=== PATIENT | male | born 1945 ===

== ENCOUNTER 2016-07-14 12:25 | Emergency (ER) | payer BC ==
[~2016-07-14] VITALS: Ht 167.6 cm; Wt 61.0 kg
[2016-07-14 12:41] VITALS: Ht 167.6 cm; Wt 61.0 kg
[2016-07-14 14:31] LABS: ADD SCAN DIFF NO
[2016-07-14 14:33] LABS: BASOPHILS % 0.1 % (0.0-2.0); EOSINOPHILS % 0.3 % (0.0-7.0); HEMATOCRIT 40.2 % (42.0-52.0); HEMOGLOBIN 13.9 g/dl (14.0-18.0); LYMPHOCYTES # 0.9 10^3/ul (0.8-2.9); LYMPHOCYTES % 11.8 % (15.0-51.0); MEAN CORPUSCULAR HEMOGLOBIN 30.6 pg (29.0-33.0); MEAN CORPUSCULAR HGB CONC 34.6 g/dl (32.0-37.0); MEAN CORPUSCULAR VOLUME 88.5 fl (82.0-101.0); MEAN PLATELET VOLUME 8.6 fl (7.4-10.4); MONOCYTE # 0.6 10^3/ul (0.3-0.9); MONOCYTES % 7.7 % (0.0-11.0); NEUTROPHIL # 6.2 10^3/ul (1.6-7.5); NEUTROPHILS % 79.7 % (39.0-77.0); PLATELET COUNT 409 10^3/UL (140-415); RED BLOOD COUNT 4.54 10^6/ul (4.70-6.10); RED CELL DISTRIBUTION WIDTH 13.4 % (11.5-14.5); WHITE BLOOD COUNT 7.8 10^3/ul (4.8-10.8)
[2016-07-14] MEDS ORDERED: BENA40TA41 PO (14:34)
[2016-07-14] MEDS ORDERED: LEVO25TA53 PO (14:34)
[2016-07-14] MEDS ORDERED: SIMV20TA PO (14:34)
[2016-07-14] MEDS ORDERED: PITA2TAB PO (14:34)
[2016-07-14] MEDS ORDERED: CLON-379 PO (14:35)
[2016-07-14] MEDS ORDERED: ICOS1CAP PO (14:35)
--- NOTE | 2016-07-14 14:43 | RADRPT ---
PROCEDURE: CT Brain without. CLINICAL INDICATION: Possible stroke. TECHNIQUE: A CT of the brain was performed on multidetector high-resolution CT scanner utilizing a xial sections from the skull base through the vertex without contrast. The scan was reviewed in sof t tissue brain and high frequency resolution bone algorithm windows. Images were reviewed on a high -resolution PACS workstation. One or more the following does reduction techniques were utilized: Aut omated exposure control, adjustment of the mA/ or kV according to patient's size, or use of iterativ e reconstruction technique. The exam CTDI = 44.46 mGy and the DLP = 630.2 mGy-cm. COMPARISON: None available. FINDINGS: The ventricles and sulci are mildly prominent indicative of volume loss. There is no intracranial h emorrhage, mass effect or midline shift. No abnormal intra-axial or extra-axial fluid collections a re seen. The hoyt/white matter differentiation is preserved. There are mild scattered foci of hypoattenuation in the white matter, which are nonspecific in etiol ogy but likely reflect chronic small vessel ischemic changes. There are minimal intracranial vascul ar calcifications consistent with atherosclerosis. The visualized paranasal sinuses are essentially clear. IMPRESSION: 1. No acute intracranial hemorrhage, transcortical infarction or mass effect. 2. Minimal intracranial atherosclerosis and mild chronic small vessel ischemic changes. 3. Mild generalized cerebral volume loss. RPTAT: HH .Kenna Pollock MD, MD Date Time Electronically viewed and signed by .Kenna Pollock MD, MD on 07/14/2016 14:43 .N/
[2016-07-14 14:48] LABS: INR 0.94; PARTIAL THROMBOPLASTIN TIME 25.1 Sec (25.0-35.0); PROTIME 12.6 Sec (12.2-14.2)
[2016-07-14 14:51] LABS: ALANINE AMINOTRANSFERASE 37 IU/L (13-69); ALBUMIN 4.4 g/dl (3.3-4.9); ALBUMIN/GLOBULIN RATIO 1.76; ALKALINE PHOSPHATASE 46 IU/L (42-121); ANION GAP 10 (8-16); ASPARTATE AMINO TRANSFERASE 24 IU/L (15-46); BILIRUBIN,INDIRECT 0.3 mg/dl (0-1.1); BILIRUBIN,TOTAL 0.3 mg/dl (0.2-1.3); BLOOD UREA NITROGEN 20 mg/dl (7-20); CALCIUM 8.9 mg/dl (8.4-10.2); CARBON DIOXIDE 25 mmol/L (21-31); CHLORIDE 107 mmol/L (97-110); CREATININE 0.91 mg/dl (0.61-1.24); GLUCOSE 105 mg/dl (70-220); POTASSIUM 4.4 mmol/L (3.5-5.1); SODIUM 138 mmol/L (135-144); TOTAL PROTEIN 6.9 g/dl (6.1-8.1)
[2016-07-14 15:03] LABS: TROPONIN-I < 0.012 ng/ml (0.00-0.12)
--- NOTE | 2016-07-14 15:07 | ERD ---
ER Documentation Chief Complaint Date/Time DATE: 07/14/16 TIME: 15:03 Chief Complaint dizzy, face & hand numbness x1wk sent by pcp HPI 71-year-old male with history of hypertension, hyperlipidemia and thyroid disease referred to the ED by his primary care physician Dr.Hasmin Zamora for evaluation of possible TIA/CVA. Patient works in the kitchen here at [employer] and complains of a two-week history of increasing work stress that began after the menu was changed resulting in anxiety, nervousness and insomnia. Denies depression, suicidal or homicidal ideations. Denies headache, dizziness, visual changes, focal weakness or numbness. Apparently in her office patient complained of intermittent facial numbness but he denies this currently. No chest pain or palpitations. No shortness of breath or cough. Denies abdominal pain, nausea, vomiting, diarrhea or constipation. No dysuria, polyuria or flank pain. No fevers or chills. ROS All systems reviewed and are negative except as per history of present illness. Medications Home Meds Reported Medications Clonidine Hcl* (Clonidine Hcl*) 0.1 Mg Tab, 0.1 MG PO Q8, TAB 07/14/16 Icosapent Ethyl (VASCEPA) 1 Gm Capsule, 2 GM PO BID, CAP 07/14/16 Pitavastatin Calcium (Livalo) 2 Mg Tablet, 2 MG PO DAILY, TAB 07/14/16 Simvastatin* (Zocor*) 20 Mg Tablet, 20 MG PO QHS, #30 TAB 07/14/16 Levothyroxine Sodium* (Levothyroxine Sodium*) 25 Mcg Tablet, 25 MCG PO BEFORE BREAKFAST, #30 TAB 07/14/16 Benazepril Hcl* (Benazepril Hcl*) 40 Mg Tablet, 40 MG PO DAILY, #30 TAB 07/14/16 Allergies Allergies: Coded Allergies: No Known Allergy (Unverified , 07/14/16) PMhx/Soc Reviewed in chart. As per HPI History of Surgery: Yes (prostate) Anesthesia Reaction: No Hx Neurological Disorder: No Hx Respiratory Disorders: No Hx Cardiac Disorders: Yes (htn, high cholesterol) Hx Psychiatric Problems: No Hx Miscellaneous Medical Probl: No Hx Alcohol Use: No Hx Substance Use: No Hx Tobacco Use: No Smoking Status: Never smoker FmHx No stroke or coronary artery disease Physical Exam Vitals Vital Signs Date Time Temp Pulse Resp B/P Pulse Ox O2 Delivery O2 Flow Rate FiO2 07/14/16 12:41 99.0 89 20 143/76 100 Physical Exam Const: Alert, anxious Head: Atraumatic Eyes: SHIRAZ, EOMI. Normal Conjunctiva. No nystagmus ENT: Normal External Ears, Nose and Mouth. Neck: Full range of motion. Nontender. Carotids are 2+ bilaterally without bruits. No JVD. Resp: Breath sounds are equal and clear to auscultation bilaterally. No rales rhonchi or wheezes. Cardio: Regular rate and rhythm, no murmurs Abd: Soft, non tender, non distended. Normal bowel sounds. No rebound or guarding. No mass or abnormal pulsations. Skin: No petechiae or rashes Back: No midline or flank tenderness Ext: No cyanosis, or edema. No calf swelling or tenderness. Neur: Awake and alert. Cranial nerves II through XII are intact. Motor and sensory equal bilaterally. Gait is normal. No focal deficit observed. Psych: Patient appears anxious but not depressed. On direct questioning he denies suicidal or homicidal ideations. Result Diagram: 07/14/16 1420 07/14/16 1420 Results 24 hrs Laboratory Tests Test 07/14/16 14:20 07/14/16 14:47 07/14/16 17:10 White Blood Count 7.810^3/ul Red Blood Count 4.5410^6/ul Hemoglobin 13.9g/dl Hematocrit 40.2% Mean Corpuscular Volume 88.5fl Mean Corpuscular Hemoglobin 30.6pg Mean Corpuscular Hemoglobin Concent 34.6g/dl Red Cell Distribution Width 13.4% Platelet Count 52124^3/UL Mean Platelet Volume 8.6fl Neutrophils % 79.7% Lymphocytes % 11.8% Monocytes % 7.7% Eosinophils % 0.3% Basophils % 0.1% Nucleated Red Blood Cells % 0.0/100WBC Neutrophils # 6.210^3/ul Lymphocytes # 0.910^3/ul Monocytes # 0.610^3/ul Eosinophils # 0.010^3/ul Basophils # 0.010^3/ul Nucleated Red Blood Cells # 0.010^3/ul Prothrombin Time 12.6Sec Prothrombin Time Ratio 1.0 INR International Normalized Ratio 0.94 Activated Partial Thromboplast Time 25.1Sec Sodium Level 138mmol/L Potassium Level 4.4mmol/L Chloride Level 107mmol/L Carbon Dioxide Level 25mmol/L Anion Gap 10 Blood Urea Nitrogen 20mg/dl Creatinine 0.91mg/dl Glucose Level 105mg/dl Calcium Level 8.9mg/dl Total Bilirubin 0.3mg/dl Direct Bilirubin 0.00mg/dl Indirect Bilirubin 0.3mg/dl Aspartate Amino Transf (AST/SGOT) 24IU/L Alanine Aminotransferase (ALT/SGPT) 37IU/L Alkaline Phosphatase 46IU/L Troponin I < 0.012ng/ml Total Protein 6.9g/dl Albumin 4.4g/dl Globulin 2.50g/dl Albumin/Globulin Ratio 1.76 Thyroid Stimulating Hormone (TSH) 2.840MIU/L Free Thyroxine 1.07ng/dl Bedside Glucose 91mg/dL Urine Color YELLOW Urine Clarity CLEAR Urine pH 5.5 Urine Specific [place] >=1.030 Urine Ketones NEGATIVE Urine Nitrite NEGATIVE Urine Bilirubin NEGATIVE Urine Urobilinogen 0.2 E.U./dL Urine Leukocyte Esterase NEGATIVE Urine Microscopic RBC 2-5/HPF Urine Microscopic WBC 0-2/HPF Urine Squamous Epithelial Cells RARE Urine Hemoglobin TRACE Urine Glucose NEGATIVE% Urine Total Protein NEGATIVE EKG: Time: 14:21. Sinus rhythm. Ventricular rate 70, normal MD and QRS intervals. No acute ST segment elevation or depression. No axis deviation or ectopy. EP Impression: Normal EKG IMAGING: PROCEDURE: CT Brain without. CLINICAL INDICATION: Possible stroke. TECHNIQUE: A CT of the brain was performed on multidetector high-resolution CT scanner utilizing axial sections from the skull base through the vertex without contrast. The scan was reviewed in soft tissue brain and high frequency resolution bone algorithm windows. Images were reviewed on a high- resolution PACS workstation. One or more the following does reduction techniques were utilized: Automated exposure control, adjustment of the mA/ or kV according to patient's size, or use of iterative reconstruction technique. The exam CTDI = 44.46 mGy and the DLP = 630.2 mGy-cm. COMPARISON: None available. FINDINGS: The ventricles and sulci are mildly prominent indicative of volume loss. There is no intracranial hemorrhage, mass effect or midline shift. No abnormal intra- axial or extra-axial fluid collections are seen. The hoyt/white matter differentiation is preserved. There are mild scattered foci of hypoattenuation in the white matter, which are nonspecific in etiology but likely reflect chronic small vessel ischemic changes. There are minimal intracranial vascular calcifications consistent with atherosclerosis. The visualized paranasal sinuses are essentially clear. IMPRESSION: 1. No acute intracranial hemorrhage, transcortical infarction or mass effect. 2. Minimal intracranial atherosclerosis and mild chronic small vessel ischemic changes. 3. Mild generalized cerebral volume loss. RPTAT: HH .Kenna Pollock MD, Date Time Electronically viewed and signed by .Kenna Pollock MD, on 07/14/2016 14: 43 .N/ PROCEDURE: XR Chest. CLINICAL INDICATION: 71-year-old male with weakness. TECHNIQUE: Single frontal view of the chest was obtained. COMPARISON: Chest x-ray 07/05/2012 10:50 a.m. FINDINGS: The soft tissues are normal. There are degenerative osteophytes in the thoracic spine. The heart is upper limits of normal for size. The cardiomediastinal silhouette and hilar structures are normal. The pulmonary vasculature is normal. There is a left-sided aorta. The lungs are clear. The costophrenic angles are normal. IMPRESSION: 1. There is no evidence of active cardiopulmonary disease. 2. Spondylosis of the thoracic spine. RPTAT:AAJJ Physician Aaron Date Time Electronically viewed and signed by Physician Aaron on 07/14/2016 15:07 JM/ Procedures/MDM DOCUMENTS REVIEWED: ED nurse, prior ED, prior REEXAMINATION/REEVALUATION: Time:17:35. Doing well. Vital signs stable. Asymptomatic. [employer]-year-old male with history of hypertension, hyperlipidemia and thyroid disease referred to the ED by his primary care physician Dr.Hasmin Zamora for evaluation of possible TIA/CVA. Patient apparently presented to our office complaining of a 2 week history of intermittent facial numbness but he denies this currently. No chest pain, ischemic EKG changes or other signs of acute coronary syndrome or cardiac dysrhythmia. CT of the brain is negative and neurologic exam is completely normal. No electrolyte abnormalities. Thyroid function tests are normal. No fever, leukocytosis or signs of an acute infectious process including but not limited to pneumonia and urinary tract infection. Abdominal exam is benign without significant tenderness, rebound, guarding or other signs of an occult intra-abdominal process including but not limited to abdominal aortic aneurysm. Presentation consistent with anxiety likely secondary to work-related stress although an element of depression should be considered. No evidence of dementia or delirium. No suicidality or homicidality. Discussed with his PMD who recommends discharge home with a short course of Xanax and close follow-up. Stable for discharge with precautionary instructions and outpatient follow-up as counseled. CALLS/CONSULTS: Time:18:00. Dr.Hasmin Zamora. Recommends discharge home with prescription for Xanax and outpatient follow-up in her office on . Counseled patient regarding diagnostic workup, diagnosis and need for followup. Understands to return to ED if symptoms recur, worsen or any other concerns. Departure Diagnosis: Primary Impression: Numbness Additional Impressions: Anxiety Hypertension Hypertension type: essential hypertension Qualified Code: I10 - Essential hypertension Hyperlipidemia Hyperlipidemia type: unspecified Qualified Code: E78.5 - Hyperlipidemia, unspecified hyperlipidemia type Condition: Stable SENG WRIGHT MD Jul 14, 2016 15:07
--- NOTE | 2016-07-14 15:07 | RADRPT ---
PROCEDURE: XR Chest. CLINICAL INDICATION: 71-year-old male with weakness. TECHNIQUE: Single frontal view of the chest was obtained. COMPARISON: Chest x-ray 07/05/2012 10:50 a.m. FINDINGS: The soft tissues are normal. There are degenerative osteophytes in the thoracic spine. The heart i s upper limits of normal for size. The cardiomediastinal silhouette and hilar structures are normal . The pulmonary vasculature is normal. There is a left-sided aorta. The lungs are clear. The costo phrenic angles are normal. IMPRESSION: 1. There is no evidence of active cardiopulmonary disease. 2. Spondylosis of the thoracic spine. RPTAT:AAJJ Physician Aaron Date Time Electronically viewed and signed by Luis Mccain Physician on 07/14/2016 15:07 JM/
[2016-07-14 17:45] LABS: ADD UMIC YES; URINE BILIRUBIN (Dip) NEGATIVE (NEGATIVE); URINE BLOOD (Dip) TRACE (NEGATIVE); URINE COLOR YELLOW (YELLOW); URINE GLUCOSE (Dip) NEGATIVE (NEGATIVE); URINE KETONES (Dip) NEGATIVE (NEGATIVE); URINE LEUKOCYTE ESTERASE (Dip) NEGATIVE (NEGATIVE); URINE NITRITE (Dip) NEGATIVE (NEGATIVE); URINE TOTAL PROTEIN (Dip) NEGATIVE (NEGATIVE); URINE UROBILINOGEN (Dip) 0.2 E.U./dL (0.1-1.0)
[2016-07-14 17:52] LABS: SQUAMOUS EPITHELIAL CELL,UR RARE
[2016-07-14] MEDS ORDERED: ALPR0.5T PO (18:16)
[2016-07-14 18:31] VITALS: BP 159/91; PULSE 64; RESP 14
== END 2016-07-14 18:33 | disposition home or self-care (01) ==
LOC: E/R 12:25
DX: R20.0 Anesthesia of skin (principal); F41.9 Anxiety disorder, unspecified; I10 Essential (primary) hypertension; E78.5 Hyperlipidemia, unspecified; R40.2142 Coma scale, eyes open, spontaneous, at arrival to emergency department; R40.2252 Coma scale, best verbal response, oriented, at arrival to emergency department; R40.2362 Coma scale, best motor response, obeys commands, at arrival to emergency department
CPT/HCPCS: 36415; 70450; 71010; 80053; 81001; 82962; 84439; 84443; 84484; 85025; 85610; 85730; 93005